=== PATIENT | female | born 1985 | race Caucasian/White ===

== ENCOUNTER 2016-06-23 08:50 | Inpatient (IN) | payer OTHER ==
[~2016-06-23] VITALS: Ht 165.1 cm; Wt 67.6 kg
[~2016-06-23 08:50] MED LIST: DEXAMETHASONE SOD PHOS 4 MG/ML VIAL IVP ONE; EPHEDrine SULFATE 50 MG/ML VIAL IM ONE; KETOROLAC TROMETHAMINE 60 MG/2 ML VIAL IM ONE; OXYTOCIN 10 UNITS/ML VIAL IM ONE
[2016-06-23] MEDS ORDERED: RINGERS SOLUTION,LACTATED 1,000 ML IV ONE (08:57)
[2016-06-23] MEDS ORDERED: CITRIC ACID/SODIUM CITRATE 30 ML SOLUTION UDCUP PO ONE (09:00)
[2016-06-23] MEDS ORDERED: METOCLOPRAMIDE HCL 5 MG/ML 2 ML VIAL IVP ONE (09:00)
[2016-06-23] MEDS ORDERED: CALC-51 PO (09:13)
[2016-06-23] MEDS ORDERED: PREN1TAB80 PO (09:13)
[2016-06-23 09:23] LABS: BASOPHILS % (AUTO) 0.4 % (0.0-2.0); EOSINOPHILS % (AUTO) 1.2 % (1.0-6.0); HEMOGLOBIN 12.3 g/dL (12.0-16.0); LYMPHOCYTES # (AUTO) 2.1 K/uL (1.0-4.8); LYMPHOCYTES % (AUTO) 32.6 % (22.0-44.0); MEAN CORPUSCULAR HEMOGLOBIN 31.9 pg (26.0-34.0); MEAN CORPUSCULAR HGB CONC 33.3 G/dL (31.0-37.0); MEAN CORPUSCULAR VOLUME 96 fL (80-100); MONOCYTES # (AUTO) 0.5 K/uL (0.1-1.0); MONOCYTES % (AUTO) 8.3 % (2.0-9.0); NEUTROPHILS # (AUTO) 3.7 K/uL (1.8-7.7); NEUTROPHILS % (AUTO) 57.5 % (40.0-70.0); RED BLOOD CELL COUNT(AUTO) 3.86 MIL/uL (4.00-5.20); RED CELL DISTRIBUTION WIDTH 13.4 % (11.5-14.5); WHITE BLOOD COUNT (AUTO) 6.4 K/uL (4.5-11.0)
[2016-06-23] MEDS ORDERED: FentaNYL CITRATE-PF 100 MCG/2 ML VIAL ONE (11:02)
[2016-06-23] MEDS ORDERED: MIDAZOLAM HCL 2 MG/2 ML VIAL ONE (11:03)
[2016-06-23] MEDS ORDERED: MORPHINE SULFATE/PF 0.5 MG/ML 10 ML AMP ONE (11:03)
[2016-06-23] MEDS ORDERED: MORPHINE SULFATE 2 MG/ML SYRINGE IVP PRN (13:00)
[2016-06-23] MEDS ORDERED: ONDANSETRON HCL 4 MG/2 ML VIAL IVP PRN ×2 (13:00→13:15)
[2016-06-23] MEDS ORDERED: OXYGEN THERAPY IH SCH ×2 (13:00→13:15)
[2016-06-23] MEDS ORDERED: FentaNYL CITRATE-PF 100 MCG/2 ML VIAL IVP PRN ×2 (13:00→13:15)
[2016-06-23] MEDS ORDERED: DiphenhydrAMINE HCL 50 MG/ML VIAL IVP PRN ×2 (13:00→13:15)
[2016-06-23] MEDS ORDERED: MORPHINE SULFATE 4 MG/ML SYRINGE IVP PRN (13:15)
[2016-06-23] MEDS ORDERED: DEXTROSE 5%-0.45% SODIUM CHL 1,000 ML IV SCH (13:20)
[2016-06-23] MEDS ORDERED: LANOLIN 7 GM OINTMENT TP PRN ×2 (13:30)
[2016-06-23] MEDS ORDERED: ACETAMINOPHEN/CODEINE 300-30 MG TABLET PO PRN ×3 (13:30)
[2016-06-23] MEDS: DEXTROSE 5%-0.45% SODIUM CHL 1,000 ML IV SCH ×2 (17:06→21:03)
[2016-06-23] MEDS: NALBUPHINE HCL 10 MG/ML VIAL IVP SCH ×2 (17:08→23:12)
[2016-06-23] MEDS ORDERED: INFLUENZA VIRUS VACCINE QVS 2016-17 (3YR+)/PF 60 MCG/0.5 ML SYRINGE IM ONE (17:30)
[2016-06-23] MEDS: KETOROLAC TROMETHAMINE 30 MG/ML VIAL IVP SCH (19:10)
[2016-06-23] MEDS ORDERED: MAGNESIUM HYDROXIDE SUSPENSION 30 ML UDCUP PO SCH (21:00)
[2016-06-24] MEDS: DEXTROSE 5%-0.45% SODIUM CHL 1,000 ML IV SCH ×2 (00:40→05:03)
[2016-06-24] MEDS: KETOROLAC TROMETHAMINE 30 MG/ML VIAL IVP SCH ×2 (01:09→06:34)
[2016-06-24] MEDS: NALBUPHINE HCL 10 MG/ML VIAL IVP SCH (05:03)
[2016-06-24] MEDS ORDERED: IBUPROFEN 800 MG TABLET PO SCH ×2 (06:00)
[2016-06-24] MEDS: ACETAMINOPHEN/CODEINE 300-30 MG TABLET PO PRN ×3 (10:17→23:27)
[2016-06-24] MEDS: MAGNESIUM HYDROXIDE SUSPENSION 30 ML UDCUP PO SCH ×2 (10:17→21:22)
[2016-06-24] MEDS: IBUPROFEN 800 MG TABLET PO SCH ×2 (16:51→23:28)
[2016-06-25 06:54] LABS: BASOPHILS % (AUTO) 0.3 % (0.0-2.0); EOSINOPHILS % (AUTO) 1.3 % (1.0-6.0); HEMATOCRIT 30.4 % (36-46); HEMOGLOBIN 10.3 g/dL (12.0-16.0); LYMPHOCYTES # (AUTO) 2.3 K/uL (1.0-4.8); LYMPHOCYTES % (AUTO) 27.3 % (22.0-44.0); MEAN CORPUSCULAR HEMOGLOBIN 32.5 pg (26.0-34.0); MEAN CORPUSCULAR HGB CONC 33.9 G/dL (31.0-37.0); MEAN CORPUSCULAR VOLUME 96 fL (80-100); MONOCYTES # (AUTO) 0.6 K/uL (0.1-1.0); NEUTROPHILS # (AUTO) 5.3 K/uL (1.8-7.7); NEUTROPHILS % (AUTO) 64.1 % (40.0-70.0); RED BLOOD CELL COUNT(AUTO) 3.17 MIL/uL (4.00-5.20); RED CELL DISTRIBUTION WIDTH 12.9 % (11.5-14.5); WHITE BLOOD COUNT (AUTO) 8.3 K/uL (4.5-11.0)
[2016-06-25] MEDS: MAGNESIUM HYDROXIDE SUSPENSION 30 ML UDCUP PO SCH ×2 (08:52→19:59)
[2016-06-25] MEDS: IBUPROFEN 800 MG TABLET PO SCH ×3 (08:52→21:12)
[2016-06-25] MEDS: DiphenhydrAMINE/ZINC ACET 30 GM CREAM TP PRN ×2 (15:09→21:14)
[2016-06-25] MEDS ORDERED: IBUP-1547 PO (15:31)
[2016-06-25] MEDS ORDERED: ACET-2247 PO (15:34)
[2016-06-25] MEDS ORDERED: FERR-89 PO (15:36)
[2016-06-25] MEDS: ACETAMINOPHEN/CODEINE 300-30 MG TABLET PO PRN (20:00)
[2016-06-26] MEDS: IBUPROFEN 800 MG TABLET PO SCH ×2 (03:14→09:31)
[2016-06-26] MEDS: DiphenhydrAMINE/ZINC ACET 30 GM CREAM TP PRN ×2 (03:15→11:28)
[2016-06-26] MEDS ORDERED: ACETAMINOPHEN 325 MG TABLET PO ONE (08:30)
[2016-06-26] MEDS: MAGNESIUM HYDROXIDE SUSPENSION 30 ML UDCUP PO SCH (09:00)
[2016-06-26] MEDS ORDERED: BUTALBITAL/ACETAMINOPHEN/CAFFEINE 50-325-40 MG TABLET PO ONE (11:00)
== END 2016-06-26 11:35 | disposition home or self-care (01) | DRG 766 ==
LOC: OBSVTOIN 08:50 → EDBD 08:50 → 4S 08:50
PROVIDERS: ADMIT Obstetrics & Gynecology; ATTEND Obstetrics & Gynecology
PROC: 10D00Z1 Extraction of Products of Conception, Low, Open Approach (ICD-10-PCS; principal; 2016-06-23)
PROC: 0UB70ZZ Excision of Bilateral Fallopian Tubes, Open Approach (ICD-10-PCS; 2016-06-23)
PROC: 3E0234Z Introduction of Serum, Toxoid and Vaccine into Muscle, Percutaneous Approach (ICD-10-PCS; 2016-06-23)
DX: O34.211 Maternal care for low transverse scar from previous cesarean delivery (principal); Z3A.39 39 weeks gestation of pregnancy; Z37.0 Single live birth; Z30.2 Encounter for sterilization; Z23 Encounter for immunization; Z98.890 Other specified postprocedural states
CPT/HCPCS: 85461; 86850; 86870; 86900; 86901; 87081; 88302; 90471; J0690; J1100; J1885; J2250; J2274; J2300; J2590; J2765; J3010; J3490